=== PATIENT | male | born 1940 | race Caucasian/White ===

== ENCOUNTER 2024-03-14 09:05 | Day surgery (SDC) | payer OTHER ==
[~2024-03-14] VITALS: Ht 177.8 cm; Wt 75.4 kg
[~2024-03-14 09:05] MED LIST: Balanced Salt Epinephrine Irrigation Solution 500 mL IR SCH; Flonase 0.05% N16 GM; GEMF600 PO; Lidocaine HCl/Pf 1% 5 ML VIAL XX SCH; Moxifloxacin HCL 0.5 MG/0.1 ML 0.4MLSYR LEFTEYE SCH; OLME20 PO; Omeprazole20 M1 PO; PHENYLEPHRINE\\TROPICAMIDE\\TETRACAINE OPHTHALMIC DILATING SOLN LEFTEYE PRN; Povidone-Iodine 450 DROP/30 ML Solution LEFTEYE SCH; Povidone-Iodine 450 DROP/30 ML Solution ONE; Tetracaine HCl/Pf 0.5% Opth Soln 4 ml ONE; Triamcinolone Inj Susp 40 MG / ML 1ML Vial INJ SCH; Triamcinolone Inj Susp 40 MG / ML 1ML Vial ONE
[2024-03-14] MEDS ORDERED: Diazepam 2 MG Tab ONE (09:17)
--- NOTE | 2024-03-14 09:42 | NUR ---
03/14/24 0942 Aggie Maldonado 4MG 0929 TETRACAINE AT 0930 PLEDGET AT 0932
[2024-03-14 10:34] VITALS: BP 129/67
--- NOTE | 2024-03-14 10:49 | NUR ---
03/14/24 Yisel9 Moriah Oh NO C/O PAIN, PT DENIED ANY NAUSEA. PT PLEASANT AND COOPERATIVE WITH CARE PROVIDED. ALL QUESTIONS ANSWERED/CONCERNS ADDRESSED. PT EDUCATION PROVIDED, CAME IN TO SPEAK WITH PT. IV WAS TAKEN OUT, PT ABLE TO TOLERATE JUST FINE. PT COLLECTED ALL PERSONAL BELONGINGS, PT ASSISTED TO PRIVATE VEHICLE SAFELY.
[2024-03-14] MEDS ORDERED: GABA100 PO (13:13)
[2024-03-14] MEDS ORDERED: FLONASE ALLERG9.9 M2 (13:14)
== END 2024-03-14 10:47 | disposition home or self-care (01) ==
LOC: ORSCSDS 09:05
PROVIDERS: Ophthalmology
PROC: 08RK3JZ Replacement of Left Lens with Synthetic Substitute, Percutaneous Approach (ICD-10-PCS; principal; 2024-03-14 10:30)
DX: H25.813 Combined forms of age-related cataract, bilateral (principal); I12.9 Hypertensive chronic kidney disease with stage 1 through stage 4 chronic kidney disease, or unspecified chronic kidney disease; N18.30 Chronic kidney disease, stage 3 unspecified; E78.5 Hyperlipidemia, unspecified; Z79.899 Other long term (current) drug therapy
CPT/HCPCS: A9270; J3301; V2632

== ENCOUNTER 2024-03-21 09:02 | Day surgery (SDC) | payer OTHER ==
[~2024-03-21] VITALS: Ht 177.8 cm; Wt 74.2 kg
[~2024-03-21 09:02] MED LIST changes: +FLONASE ALLERG9.9 M2; +GABA100 PO; -Moxifloxacin HCL 0.5 MG/0.1 ML 0.4MLSYR LEFTEYE SCH; +Moxifloxacin HCL 0.5 MG/0.1 ML 0.4MLSYR RIGHTEYE SCH; -PHENYLEPHRINE\\TROPICAMIDE\\TETRACAINE OPHTHALMIC DILATING SOLN LEFTEYE PRN; +PHENYLEPHRINE\\TROPICAMIDE\\TETRACAINE OPHTHALMIC DILATING SOLN RIGHTEYE PRN; -Povidone-Iodine 450 DROP/30 ML Solution LEFTEYE SCH; +Povidone-Iodine 450 DROP/30 ML Solution RIGHTEYE SCH
[2024-03-21] MEDS ORDERED: Diazepam 2 MG Tab ONE (09:19)
[2024-03-21 10:31] VITALS: BP 149/73
--- NOTE | 2024-03-21 10:32 | NUR ---
03/21/24 1032 Aggie Maldonado NO QUESTIONS OR CONCERNS AT THIS TIME
== END 2024-03-21 10:37 | disposition home or self-care (01) ==
LOC: ORSCSDS 09:02
PROVIDERS: Ophthalmology
PROC: 08RJ3JZ Replacement of Right Lens with Synthetic Substitute, Percutaneous Approach (ICD-10-PCS; principal; 2024-03-21 10:30)
DX: H25.811 Combined forms of age-related cataract, right eye (principal); I12.9 Hypertensive chronic kidney disease with stage 1 through stage 4 chronic kidney disease, or unspecified chronic kidney disease; N18.9 Chronic kidney disease, unspecified; H04.123 Dry eye syndrome of bilateral lacrimal glands; Z79.899 Other long term (current) drug therapy
CPT/HCPCS: A9270; J3301; V2632